=== PATIENT | male | born 1985 ===

== ENCOUNTER 2024-09-20 11:02 | Emergency (ER) | payer MEDICAID, SELFPAY ==
--- NOTE | ~2024-09-20 | CT_ITS ---
CLINICAL HISTORY: pleuritic chest pain, elevated dimer, r o PE CT angiography chest with contrast. 3D Postprocessing. Comparison: None Findings: The heart size is normal. RV/LV ratio is normal. The thoracic aorta is normal caliber. No acute pulmonary embolus. The visualized thyroid and mediastinum are unremarkable. There is right lower lobe consolidation with trace pleural effusion. Differential considerations include pneumonia versus susbsegmental atelectasis. The visualized upper abdomen is unremarkable. No acute fractures. IMPRESSION: 1. No pulmonary embolus. 2. Right lower lobe consolidation, differential consideration noted. This document has been electronically signed by: Jc Orozco MD on 09/20/2024 18:22:34
--- NOTE | ~2024-09-20 | XR_ITS ---
EXAMINATION: XR CHEST CLINICAL INFORMATION: R side pain diminished lung sounds COMPARISON: None available. TECHNIQUE: 2 views of the chest were obtained. FINDINGS: The lungs are well-expanded with platelike atelectasis in both lung bases. The heart size and pulmonary vascularity is normal. No gross bony abnormality seen. XR/XR chest 2V IMPRESSION: Bibasilar platelike atelectasis. Electronically signed by: Blaise Rhoades MD 09/20/2024 01:12 PM EST
[2024-09-20 11:29] VITALS: BP 142/88; PULSE 83; RESP 19; TEMP 37.5; O2SAT 95; BMI 23.7
--- NOTE | 2024-09-20 11:29 | ED_ITS ---
HPI - General Adult General Chief complaint: Upper Respiratory Symptoms Stated complaint: rib pain Time Seen by Provider: 09/20/24 14:01 Source: patient, family (partner) and fairing man (romanian) Mode of arrival: ambulatory Limitations: language barrier (Swazi) History of Present Illness ED Provider: GALA PEREZ PA-C HPI narrative: 39 year old male with no significant pmhx presents to the ED today for evaluation of right sided chest pain x3-4 days. Pain is localized to right posterior lower rib region. Pain is exacerbated with deep breathing and coughing. Endorses dry cough and subjective fevers at home. No known sick contacts. Admits to smoking tobacco and vaping. No recent travel or long car rides. Denies hx asthma/ COPD. On my initial evaluation, he reports his chest pain has improved after receiving Toradol ordered by triage provider. Related Data Previous Rx's ?Medication ?Instructions ?Recorded azithromycin 250 mg tablet See Rx Instructions PO .COMPLEX #6 09/20/24 tabs benzonatate 100 mg capsule 100 mg PO BID PRN cough #20 caps 09/20/24 Allergies Allergy/AdvReac Type Severity Reaction Status Date / Time Penicillins [PCN] Allergy Unknown Verified 09/20/24 11:33 Review of Systems 2 Review of Systems: Constitutional: No fever, chills, fatigue, night sweats, weight changes ENT/Mouth: No ear pain, hearing loss, nasal congestion, sinus pain, rhinorrhea, sore throat Eyes: No eye pain, swelling, redness, vision changes, discharge Cardio: No palpitations, GARCIA, orthopnea, peripheral edema, +chest pain Pulm: No SOB, sputum, wheezing, dyspnea, hemoptysis, +cough GI: No nausea, vomiting, hematemesis, abdominal pain, diarrhea, constipation, hematochezia, melena : No irregular bleeding, dysuria, frequency, urgency, hesitancy, hematuria, flank pain, urinary flow changes, urinary incontinence or retention MSK: No back pain, neck pain, joint pain, myalgias Skin: No lesions, rashes Neuro: No weakness, numbness, paresthesias, LOC, dizziness, headache Psych: No anxiety/panic, depression, SI/HI, AH/VH All other systems reviewed and are negative. FOR[facility]LY [facility] Past Medical History Attestation statement: The following information was validated with the patient. Source: old records reviewed and nursing notes reviewed Social History Social History Smoked in Last 30 Days: No Use of substances other than those prescribed or required for medical reasons: No Advance Directives: No Do you have a plan to hurt others: No Plan Physical Exam ED Vital Signs: Vital Signs - 24 hr 09/20/24 11:29 09/20/24 13:51 09/20/24 15:30 Temperature 99.5 F Pulse Rate 83 89 Respiratory Rate 19 18 Blood Pressure 142/88 H 134/87 Pulse Oximetry 95 94 97 Oxygen Delivery Method Room Air Room Air Room Air 09/20/24 16:25 09/20/24 18:15 09/20/24 18:57 Temperature 97.5 F 99.1 F 99.1 F Pulse Rate 78 70 70 Respiratory Rate 16 16 16 Blood Pressure 110/62 104/65 104/65 Pulse Oximetry 95 99 99 Oxygen Delivery Method Room Air Room Air Room Air BMI result Body Mass Index 23.7 Low-grade temp of 99.5?. Hypertensive to 142/88. Not hypoxic. Not tachycardic. General: Well appearing, in no acute distress, lying comfortably on exam bed Skin: Warm, dry, intact. No rashes or lesions. Head: Normocephalic, atraumatic. EENT: Hearing is intact b/l. Conjunctiva clear. PERRLA. EOM intact. Moist mucous membranes.? Neck: Supple without LAD. FROM. Trachea midline.? Cardiac: Chest wall symmetric. RRR +reproducible tenderness to palpation of right posterolateral chest wall without palpable deformity or crepitus. Lungs: Normal respiratory effort without accessory muscle use. CTA bilaterally. No rales, rhonchi, or wheezes.? Abdomen: Soft, non-tender, non-distended. Back: No midline spinous or paraspinal tenderness. No step off deformity. Ext: Upper and lower extremities atraumatic, without tenderness, deformity, swelling or erythema. no calf tenderness. Neuro: AOx3. Normal speech. Ambulating with steady gait. Psych: Appropriate mood and affect. Responds appropriately to questions. Course Course Course Narrative: 39 yo male no PMH not a smoker no recent travel here with 3 days of fever subjective, dry cough, one day of R sided rib pain hurts to breathe. Says it is air . He has no other complaints his partner made him come. He has no hx of asthma. At this time labs, swabs, CXR for pneumonia seems more infectious vs PTX this is a RAPID medical screening exam the rest of the history and physical exam is to be done by the main provider. Reevaluation(s) Reevaluation #1: CBC without leukocytosis or left shift. no anemia. h&h stable. chemistry without acute electrolyte abnormality requiring intervention. no kaelyn. elevated total bili to 1.3 of unknown significance. no abdominal pain / tenderness. he tested negative for covid, flu, rsv. EKG showing normal sinus rhythm with a rate of 78 beats per minute, no acute ischemic changes or ST elevations. chest xray unremarkable. Given smoking history and pleuritic chest pain, D-dimer was obtained which was elevated at 236. CTA chest was subsequently ordered to rule out PE. No evidence of pulmonary emboli. There is a right lower lobe consolidation consistent with pneumonia. > will treat for CAP. Toradol given in ED for pain control with good effect. Azithromycin sent to pharmacy for treatment. Tessalon Perles sent to pharmacy for cough. Patient has remained stable throughout ED visit today. Discussed worrisome signs and symptoms and when to return to the ED. All questions answered at this time. Patient is agreeable with disposition and stable for discharge. Medications Administered Discontinued Medications Generic Name Dose Route Start Last Admin Trade Name Freq PRN Reason Stop Dose Admin Iohexol 100 ml 09/20/24 17:34 09/20/24 17:35 Iohexol 350 Mg/Ml 100 Ml Infus..Btl IV 09/20/24 17:35 65 ml ONCE ONE Administration Ketorolac Tromethamine 15 mg 09/20/24 13:58 09/20/24 14:12 Ketorolac Tromethamine 15 Mg/Ml Vial IVPUSH 09/20/24 13:59 15 mg ONCE ONE Administration Medical Decision Making Medical Decision Making MDM Narrative: 39 year old male with no significant pmhx presents to the ED today for evaluation of right sided chest pain x3-4 days. Low-grade temp of 99.5, hypertensive to 142/88, not hypoxic or tachycardic. He was generally well- appearing, lying comfortably on exam bed. Exam significant for reproducible tenderness to palpation of right posterolateral chest wall without palpable deformity or crepitus. Lungs CTA bilaterally. No respiratory distress. Differential diagnosis includes viral syndrome, costochondritis, pleuritis, pulmonary embolism, ACS, arrhythmia, pneumonia, pneumothorax Plan for labs, viral serology, chest x-ray Given history of tobacco use and pleuritic chest pain, will obtain D-dimer to rule out pulmonary embolism. +/- CTA chest. Patient medicated with Toradol with good effect. Differential Diagnosis Differential Diagnoses: The differential diagnosis associated with the presentation includes as above. Admission/Observation Consideration of admission/observation: Escalation of care including admission/observation considered Admission considered on presentation Lab Data MDM Lab Attestation statement: I reviewed the patient's lab results. as above 09/20/24 12:19 09/20/24 12:20 Labs: Lab Results 09/20/24 09/20/24 09/20/24 Range/Units 12:06 12:19 12:20 WBC 10.3 (4.8-10.8) X10*3/uL RBC 4.43 L (4.60-5.80) X10*6/uL Hgb 14.3 (14.0-18.0) g/dl Hct 42.6 (42.0-52.0) % MCV 96.2 (80.0-98.0) fL MCH 32.3 (27.0-33.0) pg MCHC 33.6 (31.0-36.0) g/dl RDW 11.4 (11.0-16.0) % Plt Count 244 (160-400) X10*3/uL MPV 9.6 (9.4-12.4) fL Immature Gran % (Auto) 0.8 H (0.0-0.4) % Neut % (Auto) 70.7 (45-73) % Lymph % (Auto) 19.1 L (20-40) % [place] % (Auto) 7.6 (2-11) % Eos % (Auto) 1.3 (0-4) % Baso % (Auto) 0.5 (0-2) % Lymph # (Auto) 2.0 (1.2-4.9) X10*3/uL [place] # (Auto) 0.8 (0.1-1.2) X10*3/uL Eos # (Auto) 0.1 (0.0-0.4) X10*3/uL Baso # (Auto) 0.1 (0.0-0.2) X10*3/uL Abs Immat Gran (auto) 0.08 H (0.00-0.03) X10*3/uL Absolute Neuts (auto) 7.3 (2.0-8.3) x10*3/uL Absolute Nucleated RBC 0.000 (0.0-0.012) X10*3/uL Nucleated RBC % (auto) 0.0 (0.0-0.2) /100WBC D-Dimer High Sensitivty NG/ML Sodium 140 (135-145) mmol/L Potassium 4.1 (3.3-5.1) mmol/L Chloride 106 (96-108) mmol/L Carbon Dioxide 27 (22-29) mmol/L Anion Gap 11 L (12-20) BUN 10 (9-16) mg/dL Creatinine 1.00 (0.5-1.4) mg/dL Estim Creat Clear Calc 103.5 Estimated GFR > 60 Random Glucose 99 (60-115) mg/dL Calcium 9.9 (8.4-10.2) mg/dL Magnesium 1.9 (1.6-2.6) mg/dL Total Bilirubin 1.3 H (0.0-1.0) mg/dL Direct Bilirubin 0.3 (0.0-0.5) mg/dL AST 47 H (5-37) U/L ALT 62 H (0-40) U/L Alkaline Phosphatase 46 (39-117) U/L Total Protein 8.0 (6.5-8.0) g/dL Albumin 4.6 (3.5-5.0) g/dL Influenza Type A (PCR) NEGATIVE (Negative) Influenza Type B (PCR) NEGATIVE (Negative) RSV RNA Qual (PCR) NEGATIVE (Negative) SARS-CoV-2 RNA (RT-PCR) NEGATIVE (Negative) 09/20/24 Range/Units 15:02 WBC (4.8-10.8) X10*3/uL RBC (4.60-5.80) X10*6/uL Hgb (14.0-18.0) g/dl Hct (42.0-52.0) % MCV (80.0-98.0) fL MCH (27.0-33.0) pg MCHC (31.0-36.0) g/dl RDW (11.0-16.0) % Plt Count (160-400) X10*3/uL MPV (9.4-12.4) fL Immature Gran % (Auto) (0.0-0.4) % Neut % (Auto) (45-73) % Lymph % (Auto) (20-40) % [place] % (Auto) (2-11) % Eos % (Auto) (0-4) % Baso % (Auto) (0-2) % Lymph # (Auto) (1.2-4.9) X10*3/uL [place] # (Auto) (0.1-1.2) X10*3/uL Eos # (Auto) (0.0-0.4) X10*3/uL Baso # (Auto) (0.0-0.2) X10*3/uL Abs Immat Gran (auto) (0.00-0.03) X10*3/uL Absolute Neuts (auto) (2.0-8.3) x10*3/uL Absolute Nucleated RBC (0.0-0.012) X10*3/uL Nucleated RBC % (auto) (0.0-0.2) /100WBC D-Dimer High Sensitivty 236 NG/ML Sodium (135-145) mmol/L Potassium (3.3-5.1) mmol/L Chloride (96-108) mmol/L Carbon Dioxide (22-29) mmol/L Anion Gap (12-20) BUN (9-16) mg/dL Creatinine (0.5-1.4) mg/dL Estim Creat Clear Calc Estimated GFR Random Glucose (60-115) mg/dL Calcium (8.4-10.2) mg/dL Magnesium (1.6-2.6) mg/dL Total Bilirubin (0.0-1.0) mg/dL Direct Bilirubin (0.0-0.5) mg/dL AST (5-37) U/L ALT (0-40) U/L Alkaline Phosphatase (39-117) U/L Total Protein (6.5-8.0) g/dL Albumin (3.5-5.0) g/dL Influenza Type A (PCR) (Negative) Influenza Type B (PCR) (Negative) RSV RNA Qual (PCR) (Negative) SARS-CoV-2 RNA (RT-PCR) (Negative) Independent Interpretation I performed an independent interpretation of an: EKG and CT Scan Interpretation: EKG showing NSR with a rate of 78 bpm, QT 346/ QTC 394, no acute ischemic changes or ST elevations CTA chest showing right lower lobe consolidation Radiology Impression Discussion of test interpretation with radiology: I have reviewed the radiologist's reading. Radiologist Impression: Ordering Physician: Lizzy Manzano DO Date of Service: 09/20/24 Procedure(s): ECG 12 lead EKG Accession Number(s): [id number] cc: Lizzy Manzano DO~ Test Reason : WEAKNESS Blood Pressure : / mmHG Vent. Rate : 078 BPM Atrial Rate : 078 BPM P-R Int : 162 ms QRS Dur : 074 ms QT Int : 346 ms P-R-T Axes : 037 020 017 degrees QTc Int : 394 ms Normal sinus rhythm Normal ECG No previous ECGs available Referred By: Lizzy Manzano Electronically Signed By:APRYL PALACIOS MD Ordering Physician: Gala Perez Date of Service: 09/20/24 Procedure(s): CT angio chest PE protocol Accession Number(s): [id number] cc: Physician,Unknown ; Gala Perez~ Report Number: [id number]: Total DLP = 213.00 mGy-cm CLINICAL HISTORY: pleuritic chest pain, elevated dimer, r o PE CT angiography chest with contrast. 3D Postprocessing. Comparison: None Findings: The heart size is normal. RV/LV ratio is normal. The thoracic aorta is normal caliber. No acute pulmonary embolus. The visualized thyroid and mediastinum are unremarkable. There is right lower lobe consolidation with trace pleural effusion. Differential considerations include pneumonia versus susbsegmental atelectasis. The visualized upper abdomen is unremarkable. No acute fractures. IMPRESSION: 1. No pulmonary embolus. 2. Right lower lobe consolidation, differential consideration noted. This document has been electronically signed by: Jc Orozco MD on 09/20/2024 18:22:34 Independent Historian Clinical information obtained from an independent historian. History obtained from or confirmed by: Spouse External Record Review External record reviewed: Inpatient record Chronic Conditions Patient?s care impacted by: Other (tobacco use ) Social Determinants Patient?s care significantly limited by Social Determinants of Health including: Other Social Determinant of Health Critical Care Time Critical Care Time Critical Care Time: No Discharge Plan Discharge Clinical Impression: Community acquired pneumonia Patient Disposition: Home, Self-Care Instructions: Community Acquired Pneumonia (ED) Additional Instructions: Your blood work today is reassuring. The EKG of your heart is normal. The CT scan of your chest did not demonstrate blood clot however did show pneumonia within your right lower lung. Treatment for this is with antibiotics. Azithromycin as an antibiotic that has been sent to your pharmacy. Take this as prescribed for the next 5 days. Take Tylenol and Motrin at home for fevers. I have also sent teskimberlyhero perles to your pharmacy for you to take for your cough. Follow up with your primary care provider for repeat chest xray in 2-3 weeks to ensure resolution of pneumonia. Return to the Emergency Department if you experience worsening or uncontrolled chest pain, shortness of breath, light headedness, feeling faint, nausea, vomiting, or any other concerning symptoms. Prescriptions: New azithromycin 250 mg tablet See Rx Instructions .ROUTE .COMPLEX Qty: 6 0RF Rx Instructions: For 250 mg dose pack: take 500 mg today (day 1), then 250 mg for 4 days (days 2-5) benzonatate 100 mg capsule 100 mg PO BID PRN (Reason: cough) Qty: 20 0RF Referrals: [facility] [place] [facility] [Provider Group] [facility] [place] [facility] [Provider Group] [facility] [place] [facility] [Provider Group] Stand Alone Forms: Work/School Release Interventions: ED Discharge Assessment Last Done: 09/20/24 18:57 Discharge Date/Time: 09/20/24 18:57 Print Language: Swazi
--- NOTE | 2024-09-20 11:33 | ECG_ITS ---
Test Reason : WEAKNESS Blood Pressure : / mmHG Vent. Rate : 078 BPM Atrial Rate : 078 BPM P-R Int : 162 ms QRS Dur : 074 ms QT Int : 346 ms P-R-T Axes : 037 020 017 degrees QTc Int : 394 ms Normal sinus rhythm Normal ECG No previous ECGs available Referred By: Lizzy Manzano Electronically Signed By:APRYL PALACIOS MD
[2024-09-20 12:23] LABS: MANUAL DIFF FLAG NO
[2024-09-20 12:29] LABS: Basophils Absolute Auto 0.1 X10*3/uL (0.0-0.2); Basophils Percent Auto 0.5 % (0-2); Eosinophils Absolute Auto 0.1 X10*3/uL (0.0-0.4); Eosinophils Percent Auto 1.3 % (0-4); Hematocrit 42.6 % (42.0-52.0); Hemoglobin 14.3 g/dl (14.0-18.0); Imm Gran Abs Auto 0.08 X10*3/uL (0.00-0.03); Imm Gran Pct Auto 0.8 % (0.0-0.4); Lymphocytes Percent Auto 19.1 % (20-40); Mean Corpuscular HGB Conc 33.6 g/dl (31.0-36.0); Mean Corpuscular Hemoglobin 32.3 pg (27.0-33.0); Mean Corpuscular Volume 96.2 fL (80.0-98.0); Mean Platelet Volume 9.6 fL (9.4-12.4); Monocytes Absolute Auto 0.8 X10*3/uL (0.1-1.2); Monocytes Percent Auto 7.6 % (2-11); Neutrophils Absolute Auto 7.3 x10*3/uL (2.0-8.3); Neutrophils Percent Auto 70.7 % (45-73); Platelet Count 244 X10*3/uL (160-400); Red Blood Count 4.43 X10*6/uL (4.60-5.80); Red Cell Distribution Width 11.4 % (11.0-16.0); White Blood Count 10.3 X10*3/uL (4.8-10.8)
[2024-09-20 12:39] LABS: Alanine Aminotransferase 62 U/L (0-40); Albumin Level 4.6 g/dL (3.5-5.0); Alkaline Phosphatase 46 U/L (39-117); Anion Gap 11 (12-20); Aspartate Amino Transferase 47 U/L (5-37); Bilirubin Direct 0.3 mg/dL (0.0-0.5); Bilirubin Total 1.3 mg/dL (0.0-1.0); Blood Urea Nitrogen 10 mg/dL (9-16); Calcium 9.9 mg/dL (8.4-10.2); Carbon Dioxide 27 mmol/L (22-29); Chloride 106 mmol/L (96-108); Creatinine Clr Calc Pharmacy 103.5; Estimated Glomerular Filt Rate > 60; Glucose Random 99 mg/dL (60-115); Magnesium 1.9 mg/dL (1.6-2.6); Potassium 4.1 mmol/L (3.3-5.1); Sodium 140 mmol/L (135-145)
[2024-09-20 13:08] LABS: Influenza A PCR NEGATIVE (Negative); Influenza B PCR NEGATIVE (Negative); Resp Syncy Virus RNA Qual PCR NEGATIVE (Negative); SARS COV2 PCR INHOUSE NEGATIVE (Negative)
[2024-09-20 13:51] VITALS: BP 134/87; PULSE 89; RESP 18; O2SAT 94
[2024-09-20] MEDS: Ketorolac Tromethamine 15 MG/ML VIAL IVPUSH (14:12)
[2024-09-20 15:15] LABS: D Dimer High Sensitivity 236 NG/ML
[2024-09-20 15:30] VITALS: O2SAT 97
[2024-09-20 16:25] VITALS: BP 110/62; PULSE 78; RESP 16; TEMP 36.4; O2SAT 95
[2024-09-20] MEDS: iohexoL 350 MG/ML 100 ML INFUS..BTL IV (17:35)
[2024-09-20 18:15] VITALS: BP 104/65; PULSE 70; RESP 16; TEMP 37.3; O2SAT 99
[2024-09-20 18:57] VITALS: BP 104/65; PULSE 70; RESP 16; TEMP 37.3; O2SAT 99
== END 2024-09-20 18:57 | disposition home or self-care (01) ==
PROVIDERS: Emergency Medicine; Physician Assistant Medical; Emergency Provider Emergency Medicine
DX: J18.9 Pneumonia, unspecified organism (principal); R07.9 Chest pain, unspecified; Z03.818 Encounter for observation for suspected exposure to other biological agents ruled out; R05.9 Cough, unspecified; R50.9 Fever, unspecified; F17.200 Nicotine dependence, unspecified, uncomplicated
CPT/HCPCS: 0241U; 36415; 71046; 71275; 80048; 80076; 83735; 85025; 85379; 93005; 96374; 99284; 99285; J1885; Q9967

== ENCOUNTER → 2024-09-20 11:33 | Outpatient (BNV) | payer SELFPAY | PROVIDERS: Emergency Provider Emergency Medicine; Visit Provider Internal Medicine Cardiovascular Disease | DX: R53.1 Weakness (principal) | CPT/HCPCS: 93010 ==

== ENCOUNTER → 2024-09-20 11:33 | Outpatient (BNV) | payer SELFPAY | PROVIDERS: Emergency Provider Emergency Medicine; Visit Provider Radiology Diagnostic Radiology | DX: R07.1 Chest pain on breathing (principal) | CPT/HCPCS: 71046; 71275 ==